=== PATIENT | female | born 1990 | race Caucasian/White ===

== ENCOUNTER → 2023-08-08 16:32 | Outpatient (REF) | payer BC, SELFPAY | LOC: PNTC 16:32 | PROVIDERS: ATTENDING PHYSICIAN Obstetrics & Gynecology | DX: O99.210 Obesity complicating pregnancy, unspecified trimester (principal); O34.219 Maternal care for unspecified type scar from previous cesarean delivery | CPT/HCPCS: 59025; 76815 ==

== ENCOUNTER 2023-08-10 21:51 | Observation (INO) | payer BC, SELFPAY ==
[2023-08-10 22:13] VITALS: BP 106/61; BMI 39.4
== END 2023-08-10 23:25 | disposition home or self-care (01) ==
LOC: LDRP 21:51
PROVIDERS: ADMITTING PHYSICIAN Obstetrics & Gynecology; FAMILY PHYSICIAN Obstetrics & Gynecology
DX: O36.8130 Decreased fetal movements, third trimester, not applicable or unspecified (principal); Z3A.37 37 weeks gestation of pregnancy; F31.9 Bipolar disorder, unspecified; O99.343 Other mental disorders complicating pregnancy, third trimester
CPT/HCPCS: 86850; 86900; 86901; G0378

== ENCOUNTER 2023-08-22 08:59 | Inpatient (IN) | payer BC, SELFPAY ==
[2023-08-22 09:21] VITALS: BP 108/62; BMI 38.4
[2023-08-22 09:45] LABS: Hematocrit 29.6 % (37.0-47.0); Hemoglobin 9.7 g/dL (12.0-16.0); Mean Corp Hgb Conc. 32.8 g/dL (33.0-37.0); Mean Corpuscular Hgb 26.4 pg (27.0-31.0); Mean Corpuscular Volume 80.7 fL (81.0-99.0); Mean Platelet Volume 11.3 fL (7.4-10.4); Platelet Count 231 10^3/uL (130-400); Red Blood Cell Count 3.67 10^6/uL (4.20-5.40); Red Cell Dist. Width 18.1 % (11.5-14.5); White Blood Cell Count 8.6 10^3/uL (4.8-10.8)
[2023-08-22] MEDS: ANCEF 10 IV (10:54)
[2023-08-22] MEDS: BICITRA 30 ML PO (11:59)
[2023-08-22] MEDS: TYLENOL 1000 MG PO (12:00)
[2023-08-22] MEDS: ZOFRAN 4 MG IV (18:46)
[2023-08-22] MEDS: TORADOL 15 MG IV (20:27)
[2023-08-23] MEDS: TORADOL 15 MG IV ×3 (02:08→13:45)
--- NOTE | 2023-08-23 04:10 | DOWNTIME ---
There was a [employer] Downtime on 08/23/2023 from 0111 to 08/23/2023 at 0405. Downtime documentation of patient's care, including medication administrations, has been reconciled in the electronic record per guidelines. Refer to the
patient's paper chart under the miscellaneous tab to see printed paper medication records and downtime forms.
[2023-08-23 04:25] LABS: Hematocrit 28.4 % (37.0-47.0); Hemoglobin 9.3 g/dL (12.0-16.0); Mean Corp Hgb Conc. 32.7 g/dL (33.0-37.0); Mean Corpuscular Hgb 27.3 pg (27.0-31.0); Mean Corpuscular Volume 83.3 fL (81.0-99.0); Mean Platelet Volume 12.2 fL (7.4-10.4); Platelet Count 229 10^3/uL (130-400); Red Blood Cell Count 3.41 10^6/uL (4.20-5.40); Red Cell Dist. Width 18.3 % (11.5-14.5); White Blood Cell Count 15.5 10^3/uL (4.8-10.8)
--- NOTE | 2023-08-23 07:32 | W.PN.ANS.POP ---
Anesthesia Post Operative
- Anesthesia Post Op Note
Vital Signs Stable-See Nursing Note: Yes
Airway Patent: Yes
Adequate Pain Control: Yes
Change in Mental Status: No
Current Postoperative Nausea & Vomiting: No
Anesthesia Complications: No
General Anesthetic Recall: No
Unplanned Admission: No
Post Op Hydration Adequate: Yes
- -
Pt awake and alert, resting comfortably with no anesthesia c/o at time of post op visit.
[2023-08-23] MEDS: MYLICON 80 MG PO ×3 (08:29→22:13)
[2023-08-23] MEDS: SENOKOT-S 1 TABLET PO (08:30)
[2023-08-23] MEDS: PRENATAL PLUS PO (13:45)
[2023-08-23] MEDS: TYLENOL 650 MG PO (18:31)
[2023-08-23] MEDS: MOTRIN 600 MG PO (19:54)
[2023-08-24] MEDS: TYLENOL 650 MG PO ×4 (00:30→13:06)
[2023-08-24] MEDS: MOTRIN 600 MG PO ×3 (04:24→13:06)
[2023-08-24] MEDS: SENOKOT-S 1 TABLET PO ×2 (04:25→18:53)
[2023-08-24] MEDS: MYLICON 80 MG PO ×2 (04:26→13:06)
[2023-08-24] MEDS: PRENATAL PLUS 1 TABLET PO (08:12)
--- NOTE | 2023-08-24 12:37 | CM ---
CM met with with new parents Viji and Vern
Baby has been named Magdaleno
Mom plans to bottle feed Magdaleno.
Parents report they have all needs for baby Magdaleno including crib, bassinet and car seat.
Magdaleno has 2 siblings at home, a sister and brother
Mom plans to take Magdaleno to [place] [facility] and will schedule appt for him
Mom plans to f/u at post
CM will follow for additional d/c needs
[2023-08-24] MEDS: PERCOCET 5/325 1 TABLET PO (18:53)
[2023-08-25] MEDS: MOTRIN 600 MG PO ×2 (00:32→09:26)
[2023-08-25] MEDS: PERCOCET 5/325 1 TABLET PO (00:32)
[2023-08-25] MEDS: MYLICON 80 MG PO ×2 (00:32→09:25)
[2023-08-25] MEDS: PRENATAL PLUS PO (09:24)
[2023-08-25] MEDS: SENOKOT-S 1 TABLET PO (09:26)
[2023-08-25] MEDS: TYLENOL 650 MG PO (09:26)
--- NOTE | 2023-08-25 13:57 | W.DS.TRANS ---
DC Summary - Medical Sales Specialist
-
Discharge Instructions:
Discharge Diagnosis/Procedures Section
Instructions:
Stand-Alone Forms: LDRP Delivery
Changes to Home Medications: No
Discharge Medications:
DC Medications w/original date entered in [employer]
Vitamin 1 tab PO DAILY 07/24/23
acetaminophen 325 mg tablet 650 mg PO Q4HPRN PRN mild pain #0 tabs 08/25/23
ibuprofen 600 mg tablet 600 mg PO Q6HPRN PRN cramps #60 tabs 08/25/23
oxycodone-acetaminophen 5 mg-325 mg tablet 1 tab PO Q4HPRN PRN moderate pain #10 tabs 08/25/23
sennosides 8.6 mg-docusate sodium 50 mg tablet (Stool Softener-Stimulant Laxative) 1 tab PO DAILYPRN PRN constipation #0 tabs 08/25/23
Home Medication Changes
Pending Results: No
[2023-08-25 15:35] LABS: Syphilis/T. pallidum Ab Reflex Negative (Negative)
== END 2023-08-25 12:44 | disposition home or self-care (01) | DRG 788 ==
LOC: LDRP 08:59
PROVIDERS: ADMITTING PHYSICIAN Obstetrics & Gynecology
PROC: 10D00Z1 Extraction of Products of Conception, Low, Open Approach (ICD-10-PCS; 2023-08-22)
DX: O34.211 Maternal care for low transverse scar from previous cesarean delivery (principal); Z3A.39 39 weeks gestation of pregnancy; Z37.0 Single live birth; O69.81X0 Labor and delivery complicated by cord around neck, without compression, not applicable or unspecified; K66.0 Peritoneal adhesions (postprocedural) (postinfection); O99.344 Other mental disorders complicating childbirth; F31.9 Bipolar disorder, unspecified; M25.511 Pain in right shoulder; R33.9 Retention of urine, unspecified
CPT/HCPCS: 85027; 86780; 86850; 86900; 86901

== ENCOUNTER 2024-02-12 10:26 | Emergency (ER) | payer BC, SELFPAY ==
[2024-02-12 10:58] VITALS: BP 119/74
[2024-02-12 11:26] LABS: % Basophils 0.8 % (0-2); % Eosinophils 2.2 % (0-6); % Immature Granulocytes 0.3 % (0-0.5); % Lymphocytes 32.1 % (20.5-51.1); % Monocytes 7.3 % (1.7-9.3); % Neutrophils 57.3 % (42.2-75.2); Absolute Basophils 0.1 10^3/uL (0-0.2); Absolute Eosinophils 0.1 10^3/uL (0-0.7); Absolute Lymphocytes 1.9 10^3/uL (1.2-3.4); Absolute Monocytes 0.4 10^3/uL (0.1-0.6); Absolute Neutrophils 3.4 10^3/uL (1.4-6.5); Hematocrit 30.6 % (37.0-47.0); Hemoglobin 9.8 g/dL (12.0-16.0); Mean Corpuscular Hgb 25.8 pg (27.0-31.0); Mean Corpuscular Volume 80.5 fL (81.0-99.0); Mean Platelet Volume 12.6 fL (7.4-10.4); Nucleated Red Blood Cells % 0 %; Platelet Count 251 10^3/uL (130-400); Red Cell Dist. Width 16.7 % (11.5-14.5)
[2024-02-12 11:36] LABS: HCG, Serum Qualitative Screen Negative
--- NOTE | 2024-02-12 12:04 | ED.GENMED ---
History of Present Illness
General
Chief Complaint: Vaginal Bleeding
Source: patient
Time Seen by Provider: 02/12/24 11:48
History of Present Illness
History of Present Illness:
33-year-old female, 6 months , had her first regular period in October, 2 thereafter by 21 days, and then another period starting January 31 which was 5-1/2 weeks from her last. And described as very heavy. She has a history of heavy
menstrual cycles but this is heavier than she is ever experienced before associated with clots and changing a tampon approximately once per hour. She feels generally fatigued, but denies dyspnea, chest pain, nausea, vomiting, anorexia, fever,
chills. Today, she also developed lower abdominal cramps which prompted her visit here. Patient denies urinary symptoms or other complaints.
Past History
Past History
ED Past Medical History: None
ED Past Surgical History: Appendectomy and
Social History
Tobacco: Non-smoker
Alcohol: None
Drug: None
Personal:
Living: with family
Employment: Employed
Phy Exam
Physical Exam
Physical Exam:
GENERAL: Alert , in no apparent distress
EYE: pupils equal and reactive
NECK: Supple, no significant adenopathy.
ENT: o/p clr, mmm.
CARDIAC: Regular rate and rhythm .
LUNGS: Clear breath sounds bilaterally, no acute respiratory distress, no wheezes/rales/rhonchi
ABDOMEN: Soft, without focal tenderness, no r/g, no cvat
NEUROLOGICAL: Alert and oriented, no focal neuro deficits
SKIN: Warm and dry, skin intact.
MUSCULOSKELETAL: No edema, well perfused.
PSYCH: Normal and appropriate interaction.
Course
Orders/Labs/Results
Orders:
Orders
02/12/24 10:29
ECG [Electrocardiogram (*1)] Urgent
Reason for Study: Chest Pain
EKG- Treatment ONCE
02/12/24 11:02
IV Insert/Care/Rem.- Treatment PRN
Orthostatic VS- Treatment ONCE
Test Result ONCE
Pulse Ox/spot Check [RESP] Urgent
Quantity: 1
Special Instructions: ON ROOM AIR
02/12/24 11:06
Type+Screen Urgent
Complete Blood Count/With Diff Urgent
HCG, Serum Qualitative Screen Urgent
Comment: Notify provider if positive test present
02/12/24 11:58
0.9% Sodium Chloride 1000 ml [Nss] 1,000 ml IV BOLUS
US Pelvis Only (non-obstetric) Urgent
Comment:
Reason For Exam: vaginal bleeding
02/12/24 14:48
Medroxyprogesterone [Provera] 10 mg PO NOW STA
Abnormal Lab Results
02/12/24
11:06
RBC 3.80 L 10^6/uL
(4.20-5.40)
Hgb 9.8 L g/dL
(12.0-16.0)
Hct 30.6 L %
(37.0-47.0)
MCV 80.5 L fL
(81.0-99.0)
MCH 25.8 L pg
(27.0-31.0)
MCHC 32.0 L g/dL
(33.0-37.0)
RDW 16.7 H %
(11.5-14.5)
MPV 12.6 H fL
(7.4-10.4)
02/12/24 11:06
Vital Signs
Initial and Last Documented VS:
Initial Vital Signs
Temp Pulse Resp BP Pulse Ox
98.1 F 95 18 119/74 99
02/12/24 10:58 02/12/24 10:58 02/12/24 10:58 02/12/24 10:58 02/12/24 10:58
Last Documented Vital Signs
Temp Pulse Resp BP Pulse Ox
98.1 F 76 16 116/76 99
02/12/24 10:58 02/12/24 15:40 02/12/24 15:40 02/12/24 15:40 02/12/24 15:40
*Critical Care Note
Total Time (30-74mins, 75-104mins- exclusive of procedures): Not Applicable
Update Note
Update Note:
Patient presents to the Emergency Department with ____vaginal bleeding
Number and Complexity of Problems Addressed at the Encounter
� Chronic conditions affecting care:
� Acute Exacerbation and/or Progression of Chronic Illness:
� Differential Diagnosis includes: But not limited to fibroid, dysfunctional uterine bleeding
Amount and/or Complexity of Data to be Reviewed and Analyzed
� I performed an independent evaluation of and my interpretation is:
EKG:
CT:
Xrays:
Laboratory Studies: Unremarkable
Other:. No sonographic evidence for abnormal endometrial thickening or uterine mass.
2. 4.1 cm simple cyst in the left ovary.
� Review of other/old records reveals:
� Clinical information was obtained by an independent historian:
� Prescriptions/Medications Considered but not given:
� Further testing considered but not performed:
Risk of Complications and/or Morbidity or Mortality of Patient Management
� Social determinants of health affecting care:
� Discussion with other providers (PCP, Hospitalists, Consultants, etc):
� Escalation of care including admission/observation vs risk of discharge considered: hCG negative, labs and ultrasound unremarkable, vital stable. Case discussed with Dr. North from [facility], agrees with plan for discharge home,
recommends Provera 10 mg daily for 2 weeks to help slow bleeding and will see in close follow-upUnremarkable hCG negative, labs and ultrasound unremarkable, vital stable. Case discussed with Dr. North from [facility], agrees with plan for discharge
home, recommends Provera 10 mg daily for 2 weeks to help slow bleeding and will see in close follow-up.
ED Attending Note
-
Portions of this chart may have been created with voice recognition software.� Occasional wrong word or��sound alike� substitutions may have occurred due to the inherent limitations of voice recognition software.
Discharge Plan
Departure
Patient Disposition: Home (Routine Discharge)
Date of Disposition: 02/12/24
Time of Disposition: 14:26
Patient with high blood pressure during this ER visit?: No
Condition: Good
Discharge Problem:
Vaginal bleeding
Instructions: Heavy Periods (DC)
Prescriptions:
New
medroxyprogesterone [Provera] 10 mg tablet
10 mg PO DAILY Qty: 14 0RF
No Action
Vitamin
1 tab PO DAILY
sennosides-docusate sodium [Stool Softener-Stimulant Laxat] 8.6-50 mg Tablet
1 tab PO DAILYPRN PRN (Reason: constipation) Qty: 0 0RF
oxycodone-acetaminophen 5-325 mg Tablet
1 tab PO Q4HPRN PRN (Reason: moderate pain) Qty: 10 0RF
ibuprofen 600 mg Tablet
600 mg PO Q6HPRN PRN (Reason: cramps) Qty: 60 0RF
acetaminophen 325 mg Tablet
650 mg PO Q4HPRN PRN (Reason: mild pain) Qty: 0 0RF
Referrals:
Chriss Anderson MD [Family Provider] -
Activity Restrictions/Additional Instructions:
PLEASE CALL YOUR [facility] DOCTOR FOR FOLLOW-UP WITHIN THE NEXT FEW WEEKS. IF YOU DEVELOP DIZZINESS, CHEST PAIN, SHORTNESS OF BREATH, INCREASING BLEEDING, INCREASING DISCOMFORT, OR OTHER WORRISOME SIGNS, PLEASE RETURN TO THE ER IMMEDIATELY.
Interventions
Interventions:
*Risk Screen - Suicide Last Done: 02/12/24 12:40
*General Assessment Last Done: 02/12/24 10:58
*Neglect/Abuse Screening Last Done: 02/12/24 12:40
ED- Fall Risk Assessment Last Done: 02/12/24 15:40
*ED COVID-19 Vaccine History Last Done: 02/12/24 15:40
*Nursing Disposition Last Done: 02/12/24 15:40
ED-Female Genitourinary Assessment Last Done: 02/12/24 12:40
Discharge Date and Time
Discharge Date/Time: 02/12/24 15:41
Print Language: ICELANDIC
[2024-02-12] MEDS: NSS 1000 IV (12:09)
[2024-02-12 14:00] VITALS: BP 122/82
[2024-02-12] MEDS: PROVERA 10 MG PO (15:31)
[2024-02-12 15:40] VITALS: BP 116/76
== END 2024-02-12 15:41 | disposition home or self-care (01) ==
LOC: EMR 10:26
PROVIDERS: Student in an Organized Health Care Education/Training Program; EMERGENCY PHYSICIAN Emergency Medicine; FAMILY PHYSICIAN Family Medicine
DX: N93.9 Abnormal uterine and vaginal bleeding, unspecified (principal); Z90.49 Acquired absence of other specified parts of digestive tract
CPT/HCPCS: 99284; 96360; 76856; 84703; 85025; 86850; 86900; 86901; 93005

== ENCOUNTER → 2024-04-03 11:42 | Outpatient (REF) | payer BC, SELFPAY | LOC: MRI 3T 11:42 | PROVIDERS: ATTENDING PHYSICIAN Obstetrics & Gynecology | DX: N92.1 Excessive and frequent menstruation with irregular cycle (principal) | CPT/HCPCS: 72197 ==

== ENCOUNTER 2024-04-09 06:06 | Day surgery (SDC) | payer BC, SELFPAY ==
[2024-04-03 11:13] LABS: % Basophils 1.2 % (0-2); % Eosinophils 3.1 % (0-6); % Immature Granulocytes 0.2 % (0-0.5); % Monocytes 7.3 % (1.7-9.3); % Neutrophils 57.2 % (42.2-75.2); Absolute Basophils 0.1 10^3/uL (0-0.2); Absolute Eosinophils 0.2 10^3/uL (0-0.7); Absolute Lymphocytes 1.6 10^3/uL (1.2-3.4); Absolute Monocytes 0.4 10^3/uL (0.1-0.6); Hematocrit 30.7 % (37.0-47.0); Hemoglobin 9.5 g/dL (12.0-16.0); Mean Corp Hgb Conc. 30.9 g/dL (33.0-37.0); Mean Corpuscular Hgb 23.9 pg (27.0-31.0); Mean Corpuscular Volume 77.3 fL (81.0-99.0); Mean Platelet Volume 11.6 fL (7.4-10.4); Nucleated Red Blood Cells % 0 %; Platelet Count 316 10^3/uL (130-400); Red Blood Cell Count 3.97 10^6/uL (4.20-5.40); Red Cell Dist. Width 16.6 % (11.5-14.5); White Blood Cell Count 5.2 10^3/uL (4.8-10.8)
[2024-04-03 12:40] LABS: Blood Urea Nitrogen 6 mg/dl (7-17); Calcium 9.3 mg/dl (8.4-10.2); Carbon Dioxide 25 mmol/L (22-30); Chloride 103 mmol/L (98-107); Glucose 90 mg/dl (70-99); Potassium 4.7 mmol/L (3.5-5.1); Sodium 140 mmol/L (135-145); eGFR > 60.00
[2024-04-03 12:46] LABS: Beta HCG Quantitative < 2.39 mIU/ml
[2024-04-09] VITALS (9 sets, daily range): BP systolic 87–104; BP diastolic 50–64; BMI 35.0
[2024-04-09] MEDS: NORMOSOL-R/PLASMALYTE-A 1000 IV (07:20)
[2024-04-09] MEDS: TYLENOL 1000 MG PO (07:21)
--- NOTE | 2024-04-09 07:33 | W.SUR.PREOP ---
Pre-Operative Surgical Note
-
I have examined this patient prior to the performance of the scheduled procedure.
The patient's condition is unchanged from the time of the current History and
Physical and the patient is able to undergo the scheduled procedure.
[2024-04-09] MEDS: DILAUDID 0.5 MG IV (08:38)
[2024-04-09] MEDS: DILAUDID 0.25 MG IV (08:56)
[2024-04-09] MEDS: TORADOL 15 MG IV (09:07)
--- NOTE | 2024-04-12 22:21 | W.IMMPOSTOP ---
Surgical Immed Post Op Note
-
Primary Surgeon: Janette North DO
Assisting Surgeon: none
Pre-op Diagnosis: Menorrhagia
Post-op Diagnosis: same
Procedure Performed: Hysteroscopy D&C
Anesthesia Type: general
Specimen / Cultures: 1. endocervical curettings 2. endometrial curettings
Estimated Blood Loss: 5ml
Complications: none
Operative Findings: Uterus: Enlarged uterus, sounded to 12 cm, endometrial cavity normal appearance, bilateral tubal ostia seen. No evidence of polyp or tumor.
Counts correct times 2.
stable to recovery
== END 2024-04-09 10:46 | disposition home or self-care (01) ==
LOC: SDS 06:06
PROVIDERS: ATTENDING PHYSICIAN Obstetrics & Gynecology
DX: N85.2 Hypertrophy of uterus (principal); N92.0 Excessive and frequent menstruation with regular cycle
CPT/HCPCS: 58558; 88305; 36415; 80048; 84702; 85025; 86850; 86900; 86901